=== PATIENT | female | born 2000 | race Caucasian/White ===

== ENCOUNTER 2025-08-13 16:10 | Emergency (ER) | payer BC, SELFPAY ==
[2025-08-13 16:22] VITALS: BP 109/74; PULSE 74; RESP 20; TEMP 36.9; O2SAT 100
[2025-08-13 16:49] LABS: EDSTREPNEGPOS1 Negative (Negative)
--- NOTE | 2025-08-13 17:10 | ED.URI ---
HPI - URI/Sore Throat General Chief Complaint: Upper Respiratory Infection Stated Complaint: Sore Throat/Nasal Congestion Time Seen by Provider: 08/13/25 17:00 Source: patient and RN notes reviewed Mode of arrival: ambulatory Limitations: no limitations History of Present Illness HPI Narrative: 25-year-old female patient presents Express Care complaining of upper respiratory symptoms for approximately 2 days. Patient reports her was recently diagnosed with strep throat. Patient reports having a sore throat, body aches, chills, and congestion. Patient denies any fevers, nausea vomiting, diarrhea, chest pain, shortness of breath, difficulty clearing secretions, dysphagia, abdominal pain, or any other symptoms. Patient has been alternating with Tylenol ibuprofen help with symptoms. Patient denies any significant past medical history. Related Data Allergies Allergy/AdvReac Type Severity Reaction Status Date / Time No Known Allergies Allergy Verified 08/13/25 16:36 Review of Systems Review of Systems: CONSTITUTIONAL: Denies fever, or sweats. Positive for chills and body aches. EYES: Denies visual changes, redness, or discharge. ENT: Denies rhinorrhea, or otalgia. Positive for congestion and sore throat. CARDIOVASCULAR: Denies chest pain, palpitations, or edema. RESPIRATORY: Denies cough or dyspnea. GASTROINTESTINAL: Denies abdominal pain, nausea, vomiting, or diarrhea. GENITOURINARY: Denies dysuria or hematuria. SKIN: Denies rash or itching. MUSCULOSKELETAL: Denies back pain, joint pain, or myalgia. NEUROLOGIC: Denies headache, numbness, or weakness. PSYCHIATRIC: Denies anxiety or depression. All other systems reviewed are negative, except as documented in HPI. PMFSH Comments At the time of my signature, I reviewed and agree with the nursing past medical, surgical, social, and family history. There is no relevant family history pertinent to the patient complaint. Exam Narrative: GENERAL: This is a well-nourished, well-developed adult, in no apparent distress. They are non ill-appearing, nontoxic appearing. HEAD: normocephalic, atraumatic. EYES: Sclera clear/white. Conjunctiva normal. Vision is grossly intact. Extraocular movements intact EARS: External ears normal, auditory canals clear and without drainage, TMs normal without perforation. Hearing grossly intact. NOSE: External nose normal with no obvious nasal discharge, nasal turbinates erythematous, no rhinorrhea. THROAT: Mucous membranes moist, posterior pharynx erythematous Uvula midline. Postnasal drip present. NECK: Neck supple, non-tender without lymphadenopathy, masses or thyromegaly. CARDIOVASCULAR: Regular rate and rhythm without murmurs, gallops, or rubs. RESPIRATORY: Clear to auscultation. Breath sounds equal bilaterally. No wheezes, rales, or rhonchi. SKIN: warm, Dry, intact with no suspicious lesions or rash, good texture and turgor. NEURO: awake, alert, and oriented to person, place and time. There were no obvious focal neurologic abnormalities. EXTREMITIES: No joint tenderness, effusion, or edema noted. BACK: Nontender without deformity. No CVA tenderness. Course Course Emergency Course: Portions of this record may have been created with voice recognition software Level of Care: Express Care Visit Vital Signs Vital signs: Vital Signs Temperature 98.5 F 08/13/25 16:22 Pulse Rate 74 08/13/25 16:22 Respiratory Rate 20 08/13/25 16:22 Blood Pressure 109/74 08/13/25 16:22 Pulse Oximetry 100 08/13/25 16:22 Oxygen Delivery Room Air 08/13/25 16:22 Temperature 98.5 F 08/13/25 16:22 Pulse Rate 74 08/13/25 16:22 Respiratory Rate 20 08/13/25 16:22 Blood Pressure 109/74 08/13/25 16:22 Pulse Oximetry 100 08/13/25 16:22 Oxygen Delivery Room Air 08/13/25 16:22 Reviewed MDM - URI/Sore Throat MDM Narrative Medical decision making narrative: Rapid strep negative. A throat culture is pending. Patient exposed to her who has strep throat and was diagnosed today. Through shared decision making with patient discussed treating present to bleed for strep throat given exam findings and exposure to spouse who is strep throat or to wait for cultures are prior to treatment as it may be possible she has a viral infection. Patient like to go ahead and start empirical treatment for strep throat. Cardiovascular Surgeon davis amoxicillin sent to pharmacy. Discussed physical exam findings. Advised supportive measures and signs/symptoms to go to the ER. Pt is appropriate for outpt treatment and f/u. Differential Diagnosis Differential diagnosis: Likely upper respiratory infection, sinusitis, viral infection and pharyngitis Lab Data Attestation: I reviewed the patient's lab results. Labs: Lab Results 08/13/25 Range/Units 16:34 POC Grp A Strep Screen Negative (Negative) Critical Care Time Critical Care Time Critical Care Time: No Discharge Plan Discharge Clinical Impression: Pharyngitis Qualifiers: Pharyngitis/tonsillitis etiology: unspecified etiology Qualified Code(s): J02.9 - Acute pharyngitis, unspecified Patient Disposition: Home Condition: Stable Instructions: Antibiotic Form, Strep Throat (ED) Additional Instructions: A throat culture will be sent off and if it is positive for strep you will be contacted. ?Please take the amoxicillin as prescribed until gone. ?You will be contagious for 24 hours after starting the medication. ?After 24 hours on antibiotics throw tooth brush away and start using a new one. Wash your sheets and cup/water bottle that is used daily. Do not share drinks. Take Tylenol or Ibuprofen for pain or fever as needed. Follow instructions on the bottle. Rest and stay hydrated. ?Follow up with your PCP in 3 days if symptoms are not improving. ?Go to the ER immediately if you develop worsening symptoms such as shortness of breath, difficulty swallowing. ? Patient Language: Romansh Prescriptions: New amoxicillin 500 mg tablet 500 mg PO Q12H 10 Days Qty: 20 0RF Follow-up/Referrals: PHYSICIAN,SORTING MACHINE ATTENDANT [Primary Care Provider, Internal Medicine] Stand Alone Forms: Work/School Release IP Time of Disposition: 17:05
--- OUTSIDE RECORDS SUMMARY | 2025-08-13 18:36 | XMS_ITS | Clinical Summary ---
Author Organization [facility] Address [address] [place] [address] Phone Care Team Providers Care Credit Interviewer Name Role Phone Provider, None Primary Care Provider Unavailabl e Allergies No known active allergies Medications No known medications Social History Tobacco Use Types Packs/Day Years Used Date Smoking Tobacco: Never Assessed Comments Unknown Sex and Gender Information Value Date Recorded Sex Assigned at Not on file Legal Sex Female 8:17 PM CDT Gender Identity Not on file Sexual Orientation Not on file Last Filed Vital Signs Vital Sign Reading Time Taken Comments Blood Pressure 116/82 05/17/2024 8:33 PM CDT Pulse 103 05/17/2024 8:33 PM CDT Temperature 36.9 C (98.5 F) 05/17/2024 8:27 PM CDT Respiratory Rate 19 05/17/2024 8:27 PM CDT Oxygen Saturation 100% 05/17/2024 8:33 PM CDT Inhaled Oxygen Concentration - - Weight 84.4 kg (186 lb) 05/17/2024 8:27 PM CDT Height 165.1 cm (5' 5) 05/17/2024 8:27 PM CDT Body Mass Index 30.95 05/17/2024 8:27 PM CDT Plan of Treatment Not on file Insurance [facility] Care Teams Credit Interviewer Relationship Specialty Start Date End Date Provider, None [place] PCP - General 05/17/24
--- OUTSIDE RECORDS SUMMARY | 2025-08-13 18:36 | XMS_ITS | Clinical Summary ---
Author Organization [facility] Address [address] [place] [address] Phone Care Team Providers Care Machine Sizer Name Role Phone Unavailable Primary Care Provider Unavailabl e Allergies No known active allergies Medications VIT-IRON FUM-FOLIC AC ORAL Take by mouth. Active Active Problems No known active problems Encounters Date Type Department Care Team Description 07/03/2025 External Device Data [facility] Provider, Abstract 06/12/2025 External Device Data [facility] Provider, Abstract 05/15/2025 External Device Data [facility] Provider, Abstract 05/15/2025 External Device Data [facility] Provider, Abstract from Last 3 Months Immunizations Immunization Administration Dates Next Due (ADACEL/BOOSTRIX)(10 YR UP) TDAP VACCINE, 0.5ML, IM 07/05/2024 Social History Tobacco Use Types Packs/Day Years Used Date Smoking Tobacco: Never Smokeless Tobacco: Never Tobacco Cessation:Counseling Given: Not Answered Alcohol Use Standard Drinks/Week Comments Never 0 (1 standard drink = 0.6 oz pur e alcohol) Feeling Safe Answer Date Recorded Are you in a relationship wi th someone who hurts you emotionally and/or physically? Patient unable to answer 07/03/2024 Comments No Sex and Gender Information Value Date Recorded Sex Assigned at Not on file Legal Sex Female 12:04 PM CDT Gender Identity Not on file Sexual Orientation Not on file Last Filed Vital Signs Vital Sign Reading Time Taken Comments Blood Pressure 114/89 07/06/2024 7:25 AM CDT Pulse 82 07/06/2024 7:25 AM CDT Temperature 36.3 C (97.4 F) 07/06/2024 7:25 AM CDT Respiratory Rate 18 07/06/2024 7:25 AM CDT Oxygen Saturation 98% 07/04/2024 3:29 PM CDT Inhaled Oxygen Concentration - - Weight 88.7 kg (195 lb 8 oz) 07/04/2024 3:10 AM CDT Height 165.1 cm (5' 5) 07/04/2024 3:10 AM CDT Body Mass Index 32.53 07/04/2024 3:10 AM CDT Plan of Treatment Health Maintenance Due Date Last Done Comments HEPATITIS B VACCINES (1 of 3 - 19+ 3-dose series) 05/2017 CERVICAL CANCER SCREENING 2019 HPV/Cotest (21-29) 2019 PAP SMEAR 2019 HPV VACCINES (1 - 3-dose SCDM series) 2025 INFLUENZA VACCINE (#1) 2025 DTAP/TDAP/TD VACCINES (2 - Td or Tdap) 07/05/2034 Insurance [facility] BLUE ACCESS/TRUE BLUE PPO [facility] BLUE ACCESS/TRUE BLUE PPO Advance Directives For more information, please contact: [phone] * Full Code (Latest Code Status on File) Date Activated Date Inactivated Comments 07/04/2024 1:59 PM 07/06/2024 1:48 PM * Full Code Date Activated Date Inactivated Comments 07/04/2024 1:09 AM 07/04/2024 1:59 PM
== END 2025-08-13 17:13 | disposition home or self-care (01) ==
DX: J02.9 Acute pharyngitis, unspecified (principal)
CPT/HCPCS: 87081; 87880; 99203; G0463